=== PATIENT | male | born 1975 | race Caucasian/White ===

== ENCOUNTER 2019-01-14 10:04 | Emergency (ER) | payer MEDICAID ==
[~2019-01-14] VITALS: Ht 172.7 cm; Wt 82.3 kg
[2019-01-14 10:09] VITALS: BP 130/74; PULSE 83; RESP 20; Ht 172.7 cm; Wt 82.3 kg
[2019-01-14] MEDS ORDERED: KETOROLAC 15 MG INJ IM STA (11:43)
[2019-01-14] MEDS ORDERED: IBUP-1542 PO (11:47)
[2019-01-14] MEDS ORDERED: CIPR7.5D RIGHT EAR (11:47)
--- NOTE | 2019-01-14 12:33 | ERD ---
ER Documentation Chief Complaint Chief Complaint Complains of a severe headache x 1 week with right ear infection HPI This is a 43-year-old male with no significant past medical history who is presenting with 1 week of progressive right-sided earache. The ear has become more red and swollen over time. Over the last 2 days, the patient also endorses a right-sided headache with intermittent fevers. The patient has been taking ibuprofen at home with only minimal relief. The patient has intermittently been nauseated and does report an episode of nonbilious nonbloody vomiting. The patient has had no vision changes. He denies photophobia or phonophobia or double or blurry vision. The patient does not endorse neck or back pain. The patient denies lightheadedness or dizziness. The patient has had no chest pain or trouble breathing. The patient denies nausea or vomiting. The patient denies abdominal pain. The patient denies changes to bowel movements or urination. The patient has had no focal deficits. The patient has had no weakness or numbness or tingling to the face or extremities. ROS All systems reviewed and are negative except as per history of present illness. Medications Home Meds Active Scripts Ibuprofen* (Motrin*) 600 Mg Tab, 600 MG PO Q6H PRN for PAIN AND OR ELEVATED TEMP, #30 TAB Prov:CHRISTA CARNEY MD 01/14/19 Ciprofloxacin Hcl/Dexameth (Ciprodex Otic Suspension) 7.5 Ml Drops.susp, 4 DROP RIGHT EAR BID for 7 Days, EA Prov:CHRISTA CARNEY MD 01/14/19 Allergies Allergies: Coded Allergies: No Known Allergy (Unverified , 01/14/19) PMhx/Soc Medical and Surgical Hx: pt denies Medical Hx, pt denies Surgical Hx History of Surgery: No Anesthesia Reaction: No Hx Neurological Disorder: No Hx Respiratory Disorders: No Hx Cardiac Disorders: No Hx Psychiatric Problems: No Hx Miscellaneous Medical Probl: No Hx Alcohol Use: No Hx Substance Use: No Hx Tobacco Use: No Smoking Status: Never smoker FmHx Family History: No diabetes Physical Exam Vitals Vital Signs Date Temp Pulse Resp B/P (MAP) Pulse Ox O2 O2 Flow FiO2 Time Delivery Rate 01/14/19 98.2 83 20 130/74 98 10:09 (92) Physical Exam Const: No apparent distress, well-developed, well-nourished Head: Normocephalic, Atraumatic Eyes: Normal Conjunctiva. Extraocular movements intact. Pupils equal, round and reactive to light ENT: Normal External Nose and Mouth. Edematous and erythematous right external ear with dry purulent discharge within the external auditory canal. Tympanic membrane unremarkable. Neck: Full range of motion. No meningismus. Resp: Clear to auscultation bilaterally, No wheezes, rales or rhonchi Cardio: Regular rate and rhythm. No murmurs, rubs or gallops Abd: Soft, non tender, non distended. Normal bowel sounds Skin: No petechiae or rashes Back: No midline tenderness. No CVA tenderness Ext: No cyanosis, or edema Neur: Awake and alert, oriented 4. Cranial nerves intact. No facial droop. Normal strength, sensation and coordination. Psych: Normal Mood and Affect Results 24 hrs Current Medications Medications Dose Sig/Laney Start Time Status Last (Trade) Ordered Route PRN Stop Time Admin Dose Reason Admin Ketorolac 15 mg ONCE STAT 01/14/19 DC 01/14/19 Tromethamine IM 11:43 12:04 (Toradol) 01/14/19 11:54 Procedures/MDM MDM Previous medical records, if available, were reviewed. The patient presents with symptoms consistent with otitis externa. The patient has not elderly or diabetic. He does not have any reason to be immunodeficient. The patient is otherwise healthy-appearing with no other obvious symptoms. I do not see any evidence of cranial nerve deficits. I do not see any surrounding erythema or induration. I do not suspect malignant otitis externa. I do not suspect cellulitis or abscess or other soft tissue infection. I suspect that the patient's headache is related to the ear pain from the otitis externa. Differential diagnosis of the headache also includes migraine, tension headache, cluster headache. The patient has no focal deficits. The neurologic exam is reassuring. I have decreased suspicion for cerebral ischemia. There was no trauma or injury. There is no personal or family history of cerebral aneurysm. This is not the worst headache of the patient's life. It was not acutely severe. It is been progressive in nature. I have decreased suspicion for SAH or other ICH. I have low suspicion for temporal arteritis, cavernous venous thrombosis, subdural hematoma, epidural hematoma, meningitis. The patient is afebrile with unremarkable vital signs. I do not suspect a systemic infection. I do not believe the patient requires a septic workup. TREATMENT/DISPOSITION The patient was treated with Toradol in the ER. DISCHARGE Upon reevaluation of the patient, symptoms have improved. No emergent diagnoses were identified. At this time, I feel that the patient stable for discharge. The patient was instructed to follow-up with a primary care physician in 1-3 days. The patient will be given strict precautions with which to return to the emergency department. Prescriptions: Ibuprofen, Ciprodex The patient's blood pressure was elevated at greater than 120/80 while in the emergency department. The patient was otherwise stable with no evidence of hypertensive urgency or emergency. The patient does not require admission for blood pressure control. I have discussed with the patient the risks of hypertension. I have instructed the patient to return to the ER for any new or worsening symptoms including chest pain, shortness of breath, headache, blurred vision, confusion, nausea, vomiting or LOC. I have advised the patient to follow up with the primary care physician for outpatient monitoring and treatment for hypertension in 1-3 days. Disclaimer: Inadvertent spelling and grammatical errors are likely due to EHR/dictation software use and do not reflect on the overall quality of patient care. Note that the electronic time recorded on this note does not necessarily reflect the actual time of the patient encounter. Departure Diagnosis: Primary Impression: Otitis externa Otitis externa type: unspecified type Chronicity: acute Laterality: ri ght Qualified Codes: H60.501 - Unspecified acute noninfective otitis externa, right ear Additional Impression: Headache Headache type: unspecified Headache chronicity pattern: acute headache Intractability: not intractable Qualified Codes: R51 - Headache Condition: Stable Patient Instructions: Self-Care for Headaches, External Ear Infection (Adult) Additional Instructions: Thank you for for coming to [facility] for your care today. Please ask your nurse or provider if you have questions about your care today and do not leave until all your questions have been answered. Please use any medications given as directed and follow-up with your doctor (or the doctor you were referred to) in the next 1-3 days. If you do not have a primary care doctor you may follow up at the [facility] or [facility] (listed below). You may also use motrin and tylenol as needed for fever and/or pain unless instructed otherwise by your provider or nurse. Indications for more urgent follow-up have been discussed, but you may return to the Emergency Department at ANY time for any worrisome or worsening symptoms. If you have abdominal pain, please know that no test or exam you received is perfect and you should follow up within 8 hours for continued pain. If you had any imaging studies today, such as an X-Ray or CT Scan, these studies will be reviewed later by a radiologist. You will be called if there are important findings that were not identified today, so make sure the contact information you provided at registration is correct. If you received any narcotic pain control medicine today, such as Vicodin, Morphine or Dilaudid, your coordination and judgment may be affected for a n umber of hours. Please do not drive or operate heavy machinery, and you may want someone to assist you at home. If you were given a prescription for narcotic medication, be aware that it is very addictive- use sparingly and only if necessary. PLEASE SEEK FURTHER EVALUATION AND MANAGEMENT AT YOUR DOCTORS OFFICE WITHIN THE NEXT 1-3 DAYS. IT IS YOUR RESPONSIBILITY TO MAKE AN APPOINTMENT FOR FOLOW-UP CARE. IF YOU HAVE A PRIMARY DOCTOR, PLEASE CALL THEIR OFFICE TO SCHEDULE AN APPOINTMENT FOR FOLLOW UP. IF YOU DO NOT HAVE A PRIMARY DOCTOR YOU CAN CALL OUR PHYSICIAN REFERRAL HOTLINE AT IF YOU CAN NOT AFFORD TO SEE A PHYSICIAN YOU CAN CHOSE FROM THE FOLLOWING [facility]: [facility] [address] [facility] [address] [facility] [address] [facility] [address] [facility] [address] [facility]. [facility]. [address] CHRISTA FARNSWORTH MD Jan 14, 2019 12:19
== END 2019-01-14 12:15 | disposition home or self-care (01) ==
LOC: FTE 10:04
DX: H60.501 Unspecified acute noninfective otitis externa, right ear (principal)
CPT/HCPCS: 96372; J1885; Z7502